=== PATIENT | female | born 1940 | race Caucasian/White ===

== ENCOUNTER → 2023-11-17 09:29 | Outpatient (REF) | payer OTHER, MEDICARE, SELFPAY ==
[2023-11-17 11:13] LABS: Mean Corpuscular Volume 80.6 fL (81.0-99.0); Mean Platelet Volume 12.6 fL (7.4-10.4); Platelet Count 233 10^3/uL (130-400); Red Cell Dist. Width 16.1 % (11.5-14.5)
[2023-11-17 11:34] LABS: ALT (SGPT) 15 U/L (0-35); AST (SGOT) 26 U/L (14-36); Albumin 2.6 g/dl (3.5-5.0); Alkaline Phosphatase 99 U/L (38-126); Blood Urea Nitrogen 23 mg/dl (7-17); Calcium 8.1 mg/dl (8.4-10.2); Chloride 96 mmol/L (98-107); Glucose 157 mg/dl (70-99); Magnesium 1.8 mg/dl (1.6-2.3); Potassium 3.1 mmol/L (3.5-5.1); Sodium 136 mmol/L (135-145); Total Bilirubin 0.9 mg/dl (0.2-1.3); Total Protein 5.5 g/dl (6.3-8.2); eGFR > 60.00
[2023-11-17 11:43] LABS: Carbon Dioxide 37 mmol/L (22-30)
[2023-11-17 11:52] LABS: Free T4 2.55 ng/dl (0.78-2.19)
[2023-11-17 12:06] LABS: TSH 2.88 uIU/ml (0.47-4.68)
== END ==
LOC: OLABWHC 09:29
PROVIDERS: ATTENDING PHYSICIAN Internal Medicine
DX: J18.9 Pneumonia, unspecified organism (principal); E11.9 Type 2 diabetes mellitus without complications; D64.9 Anemia, unspecified; D50.0 Iron deficiency anemia secondary to blood loss (chronic)
CPT/HCPCS: 36415; 80053; 83036; 83735; 84439; 84443; 85027

== ENCOUNTER → 2023-11-21 10:23 | Outpatient (REF) | payer OTHER, MEDICARE, SELFPAY ==
[2023-11-21 11:03] LABS: Hematocrit 30.2 % (37.0-47.0); Hemoglobin 9.6 g/dL (12.0-16.0); Mean Corp Hgb Conc. 31.8 g/dL (33.0-37.0); Mean Corpuscular Hgb 24.9 pg (27.0-31.0); Mean Corpuscular Volume 78.2 fL (81.0-99.0); Platelet Count 121 10^3/uL (130-400); Red Blood Cell Count 3.86 10^6/uL (4.20-5.40); Red Cell Dist. Width 16.4 % (11.5-14.5); White Blood Cell Count 8.6 10^3/uL (4.8-10.8)
[2023-11-21 11:17] LABS: Blood Urea Nitrogen 33 mg/dl (7-17); Calcium 8.8 mg/dl (8.4-10.2); Carbon Dioxide 36 mmol/L (22-30); Chloride 96 mmol/L (98-107); Glucose 138 mg/dl (70-99); Iron 95 ug/dl (37-170); Magnesium 2.2 mg/dl (1.6-2.3); Potassium 4.3 mmol/L (3.5-5.1); Sodium 135 mmol/L (135-145); eGFR > 60.00
[2023-11-21 11:26] LABS: Percent Saturation 46 % (20-50); Total Iron Binding Capacity 205 ug/dl (265-497)
== END ==
LOC: OLABWHC 10:23
PROVIDERS: ATTENDING PHYSICIAN Internal Medicine
DX: D50.0 Iron deficiency anemia secondary to blood loss (chronic) (principal); D56.8 Other thalassemias; D64.9 Anemia, unspecified
CPT/HCPCS: 36415; 80048; 82728; 83540; 83550; 83735; 85027

== ENCOUNTER → 2023-11-23 12:41 | Outpatient (REF) | payer OTHER, MEDICARE, SELFPAY ==
[2023-11-23 14:04] LABS: HDL Cholesterol 58 mg/dl; LDL Cholesterol, Calculated 23 mg/dl; Total Cholesterol 97 mg/dl (50-199); Triglyceride 81 mg/dl (10-149); Very Low Density Lipoprotein 16 mg/dl (0-30)
== END ==
LOC: OLABWHC 12:41
PROVIDERS: ATTENDING PHYSICIAN Internal Medicine
DX: J18.9 Pneumonia, unspecified organism (principal); D69.6 Thrombocytopenia, unspecified; E11.9 Type 2 diabetes mellitus without complications
CPT/HCPCS: 36415; 80061